=== PATIENT | male | born 1985 | race Caucasian/White ===

== ENCOUNTER 2020-07-25 22:49 | Emergency (ER) | payer MEDICAID ==
[~2020-07-25] VITALS: Ht 172.7 cm; Wt 79.5 kg
[~2020-07-25 22:49] MED LIST: CLIN-97 PO; DICL100T85; FAMO40TA73 PO; LISI10TA4; PROP10TA10
[2020-07-25 22:51] VITALS: BP 148/116
== END 2020-07-26 00:43 | disposition left against medical advice (07) ==
LOC: ER 22:49
DX: R07.9 Chest pain, unspecified (principal); Z53.21 Procedure and treatment not carried out due to patient leaving prior to being seen by health care provider
CPT/HCPCS: 93005

== ENCOUNTER 2021-09-06 19:30 | Emergency (ER) | payer MEDICAID ==
[~2021-09-06] VITALS: Ht 175.3 cm; Wt 81.8 kg
[~2021-09-06 19:30] MED LIST changes: +LISI10TA27; -LISI10TA4
[2021-09-06 19:37] VITALS: BP 137/100
[2021-09-06] MEDS ORDERED: neomy sulf/bacitrac zn/polymixin b oint 14.2 gm tube TP ONE (20:25)
[2021-09-06] MEDS ORDERED: cephalexin 500mg capsule PO ONE (20:25)
[2021-09-06] MEDS ORDERED: CEPH250T PO (20:30)
== END 2021-09-06 20:54 | disposition home or self-care (01) ==
LOC: ER 19:31
DX: T23.001A Burn of unspecified degree of right hand, unspecified site, initial encounter (principal); I10 Essential (primary) hypertension; F41.9 Anxiety disorder, unspecified; F32.9 Major depressive disorder, single episode, unspecified; F17.200 Nicotine dependence, unspecified, uncomplicated; Z98.890 Other specified postprocedural states; Z56.0 Unemployment, unspecified; Z88.6 Allergy status to analgesic agent; Z79.2 Long term (current) use of antibiotics; Z79.899 Other long term (current) drug therapy; X08.8XXA Exposure to other specified smoke, fire and flames, initial encounter; Y93.89 Activity, other specified; Y92.89 Other specified places as the place of occurrence of the external cause; Y99.8 Other external cause status
CPT/HCPCS: 99283

== ENCOUNTER 2021-10-01 23:36 | Inpatient (IN) | payer MEDICAID ==
[~2021-10-01] VITALS: Ht 175.3 cm; Wt 81.8 kg
[~2021-10-01 23:36] MED LIST changes: +CEPH250T PO
[2021-10-02] MEDS ORDERED: CefTRIAXone/D5W-Rocephin 1gm 50 ML IV STA (00:07)
[2021-10-02] MEDS ORDERED: VANCOmycin 1250MG/NS 250ml Bag 250 ML IV STA (00:08)
[2021-10-02] MEDS ORDERED: iohexol 300mg/ml 100ml inj. ONE (00:25)
[2021-10-02 01:12] LABS: BASOPHILS # (AUTO) 0.1 X10'3 (0-0.2); EOSINOPHILS # (AUTO) 0.2 X10'3 (0-0.9); EOSINOPHILS % (AUTO) 2.6 % (0-6); HEMATOCRIT 37.7 % (42.0-52.0); LYMPHOCYTES % (AUTO) 27.4 % (21-51); MEAN CORPUSCULAR HEMOGLOBIN 29.8 PG (27.0-31.0); MEAN CORPUSCULAR HGB CONC 34.4 g/dL (33.0-36.5); MEAN CORPUSCULAR VOLUME 86.7 FL (78-98); MEAN PLATELET VOLUME 7.3 FL (7.4-10.4); MONOCYTES # (AUTO) 0.4 X10'3 (0-0.9); MONOCYTES % (AUTO) 5.3 % (2-12); NEUTROPHILS # (AUTO) 4.6 X10'3 (1.8-7.7); NEUTROPHILS % (AUTO) 63.7 % (42-75); PLATELET COUNT 315 X10'3 (140-440); RED BLOOD COUNT 4.35 X10'6 (4.70-6.10); WHITE BLOOD COUNT 7.3 X10'3 (4.5-11.0)
[2021-10-02 01:17] LABS: APTT 28 SECONDS (22-32)
[2021-10-02 01:19] LABS: ALANINE AMINOTRANSFERASE 22 U/L (12-78); ALBUMIN 3.6 G/DL (3.4-5.0); ALBUMIN/GLOBULIN RATIO 0.8 (1.1-1.5); ALKALINE PHOSPHATASE 91 IU/L (46-116); ANION GAP 2 (8-16); ASPARTATE AMINO TRANSFERASE 24 U/L (10-37); BILIRUBIN,TOTAL 0.2 MG/DL (0.1-1.0); BLOOD UREA NITROGEN 18 MG/DL (7-18); BUN/CREATININE RATIO 23.4 (5.4-32.0); CALCIUM 9.3 MG/DL (8.5-10.1); CHLORIDE 99 MMOL/L (99-107); CREATININE 0.77 MG/DL (0.60-1.10); GLUCOSE 99 MG/DL (70-104); SODIUM 131 MMOL/L (135-145); TOTAL CARBON DIOXIDE 30.2 MMOL/L (24-32); TOTAL PROTEIN 7.9 G/DL (6.4-8.2); eGFR > 90 ML/MIN
[2021-10-02] MEDS ORDERED: mag hydrox/Alum hydrox/simeth 30ml oral suspension PO PRN (02:50)
[2021-10-02] MEDS ORDERED: magnesium 4gm in 100ml NS 100 ML IV PRN (02:50)
[2021-10-02] MEDS ORDERED: morphine 2 MG/ML inj. syringe IV PRN ×2 (02:50)
[2021-10-02] MEDS ORDERED: magnesium hydroxide 30ml (MOM) UD suspension PO PRN (02:50)
[2021-10-02] MEDS ORDERED: potassium Cl 20 mEq SR tablet PO PRN ×2 (02:50)
[2021-10-02] MEDS ORDERED: acetaminophen 325mg tablet PO PRN (02:50)
[2021-10-02] MEDS ORDERED: magnesium 2GM in 50ml NS 50 ML IV PRN (02:50)
[2021-10-02] MEDS ORDERED: magnesium Cl slow-release 64mg tablet PO PRN (02:50)
[2021-10-02] MEDS ORDERED: potassium CL 10mEq/100ml bag 100 ML IV PRN (02:50)
[2021-10-02] MEDS ORDERED: ondansetron/PF 4mg/2ml inj IV PRN (02:50)
[2021-10-02] MEDS ORDERED: HYDROcodone/acetaminophen 5mg/325mg tablet PO PRN (02:50)
[2021-10-02 03:00] VITALS: BP 122/71
[2021-10-02] MEDS: HYDROcodone/acetaminophen 10/325mg tab PO PRN ×3 (03:36→13:34)
--- NOTE | 2021-10-02 06:30 | NUR ---
Patient in room [facility]. I have received report from Seth BAPTISTE and had the opportunity to ask questions and assume patient care.
[2021-10-02 06:31] LABS: MAGNESIUM 2.2 MG/DL (1.5-2.4)
[2021-10-02] MEDS ORDERED: K and/or MAG REPLACEMENT MC SCH (08:00)
[2021-10-02] MEDS ORDERED: famotidine 20mg tablet PO SCH (08:00)
[2021-10-02] MEDS ORDERED: propranolol 10mg tablet PO SCH (08:00)
[2021-10-02] MEDS ORDERED: enoxaparin 30mg/0.3ml syringe SUBCUT SCH (08:00)
[2021-10-02] MEDS ORDERED: docusate sod 100mg capsule PO SCH (08:00)
[2021-10-02] MEDS ORDERED: lisinopril 10 MG tablet PO SCH (08:00)
[2021-10-02] MEDS ORDERED: enoxaparin 40mg/0.4ml syringe SUBCUT SCH (08:57)
[2021-10-02] MEDS ORDERED: VANCOMYCIN 1GM/200ML IVPB 200 ML IV SCH (09:00)
[2021-10-02 11:00] VITALS: BP 101/53
[2021-10-02] MEDS ORDERED: NO HOME MEDS (11:36)
[2021-10-02 14:34] VITALS: BP 105/55
--- NOTE | 2021-10-02 16:27 | NUR ---
Patient left AMA
[2021-10-03] MEDS ORDERED: CefTRIAXone/D5W-Rocephin 1gm 50 ML IV SCH
[2021-10-03] MEDS ORDERED: VANCOMYCIN LEVEL IV ONE (00:30)
== END 2021-10-02 15:52 | disposition left against medical advice (07) | DRG 115 ==
LOC: ER 23:36 → ED HOLD 10-02 02:57 → SUR 3N 10-02 03:22
PROVIDERS: ADMIT Internal Medicine; ATTEND Family Medicine
PROC: BN251ZZ Computerized Tomography (CT Scan) of Facial Bones using Low Osmolar Contrast (ICD-10-PCS; principal; 2021-10-02)
DX: H60.13 Cellulitis of external ear, bilateral (principal); F17.210 Nicotine dependence, cigarettes, uncomplicated; F19.10 Other psychoactive substance abuse, uncomplicated; I10 Essential (primary) hypertension; Z53.29 Procedure and treatment not carried out because of patient's decision for other reasons; H61.002 Unspecified perichondritis of left external ear; F32.A Depression, unspecified; F41.9 Anxiety disorder, unspecified; Z56.0 Unemployment, unspecified; Z88.8 Allergy status to other drugs, medicaments and biological substances; Z79.899 Other long term (current) drug therapy
CPT/HCPCS: 36415; 70487; 80053; 83605; 83735; 85025; 85610; 85730; 87040; 87081; 99285; G0378; J0696; J1650; J3370; Q9967

== ENCOUNTER 2023-10-24 16:25 | Emergency (ER) | payer MEDICAID ==
[~2023-10-24] VITALS: Ht 172.7 cm; Wt 81.8 kg
[~2023-10-24 16:25] MED LIST changes: -CEPH250T PO; -CLIN-97 PO; -DICL100T85; -FAMO40TA73 PO; -LISI10TA27; +NO HOME MEDS; -PROP10TA10
[2023-10-24 16:56] VITALS: BP 137/79; PULSE 106; TEMP 97.8; O2SAT 98
[2023-10-24] MEDS ORDERED: IBUP-1984 PO (17:48)
[2023-10-24 18:08] VITALS: RESP 16
[2023-10-24] MEDS: ketorolac tromethamine 15mg/ml inj. IM ONE (18:08)
== END 2023-10-24 18:26 | disposition home or self-care (01) ==
LOC: ER 16:26
DX: M25.561 Pain in right knee (principal); I10 Essential (primary) hypertension
CPT/HCPCS: 29505; 73564; 96372; 99283; J1885

== ENCOUNTER 2023-10-26 20:31 | Emergency (ER) | payer MEDICAID ==
[~2023-10-26] VITALS: Ht 175.3 cm; Wt 81.8 kg
[~2023-10-26 20:31] MED LIST changes: +IBUP-1984 PO
[2023-10-26 20:36] VITALS: BP 137/88; PULSE 98; RESP 17; TEMP 97.5; O2SAT 99
[2023-10-26] MEDS: ibuprofen 200mg tablet PO ONE (20:45)
== END 2023-10-26 20:56 | disposition home or self-care (01) ==
LOC: ER 20:31
DX: M25.561 Pain in right knee (principal); I10 Essential (primary) hypertension; Z79.1 Long term (current) use of non-steroidal anti-inflammatories (NSAID)
CPT/HCPCS: 99283

== ENCOUNTER 2025-02-03 10:30 | Emergency (ER) | payer MEDICAID ==
[~2025-02-03] VITALS: Ht 172.7 cm; Wt 72.7 kg
[~2025-02-03 10:30] MED LIST changes: -iohexol 300mg/ml 100ml inj. ONE
[2025-02-03 10:31] VITALS: BP 129/77; PULSE 94; RESP 16; TEMP 97.9; O2SAT 95
[2025-02-03] MEDS ORDERED: TETanus/Pertussis (Acell)/Diphther VAC/PF (Tdap-Adult) 0.5ml syringe IMVAC ONE (10:45)
--- NOTE | 2025-02-03 13:18 | Physician Documentation ---
History of Present Illness ~ Chief Complaint: Neck pain Stated Complaint: SWOLLEN GLANDS [facility] H[facility] Presents with a multitude of complaints, including neck pain and several sores with left neck swelling. Denies chills or fever. Ordered labs, tetanus and will further assess once patient in room. RME completed at this time. Medication Reconciliation Allergies: Coded Allergies: No Known Allergies (Unverified , 02/03/25) Miscellaneous Medications Home Med List (No Home Medications), (Reported) Past Medical History Past Medical History: Hypertension, Anxiety, Depression Past Surgical History: orthopedic surgeries Other Past Surgical History: L5-S1 fusion right thumb surgery and right hand surgery Alcohol Use: None Drug Use: other Lives with: S/O Lives In: Home Occupation: unemployed Physical Exam Vital Signs: Temperature: 97.9, Source: Oral, Heart Rate: 94, Respiratory Rate: 16, BP: 129/77, Pulse Oximetry: 95, Weight: 72.700 Oxygen Flow Rate: 0 Progress Results/Orders Results/Orders Orders - LILIAM SANCHEZ NP CMP (02/03/25 10:44) Cbc/Diff (02/03/25 10:44) Completed Orders - LILIAM SANCHEZ NP Tetanus/Pertuss/Diph Acell/Pf (Boostrix (02/03/25 10:45) Vital Signs 02/03/25 10:31 Temp 97.9 Pulse 94 Resp 16 B/P (MAP) 129/77 Pulse Ox 95 O2 Flow Rate 0 Departure Impression: Primary Impression: Eloped from emergency department Referrals: NO PRIMARY CARE PROVIDER (PCP) Signature Scribe Signature: x Attestation: The note accurately reflects work and decisions made by me.Liliam Martin NP 02/03/25 13:19 LILIAM SANCHEZ NP Feb 03, 2025 13:18
== END 2025-02-03 14:50 | disposition left against medical advice (07) ==
LOC: ER 10:31
DX: M54.2 Cervicalgia (principal); R22.1 Localized swelling, mass and lump, neck; I10 Essential (primary) hypertension; F41.9 Anxiety disorder, unspecified; F32.A Depression, unspecified; Z98.890 Other specified postprocedural states; Z56.0 Unemployment, unspecified; Z53.21 Procedure and treatment not carried out due to patient leaving prior to being seen by health care provider

== ENCOUNTER → 2025-02-03 | Emergency (ER) | payer MEDICAID ==
[~2025-02-03] VITALS: Ht 172.7 cm; Wt 74.0 kg
[~2025-02-03] MED LIST changes: -IBUP-1984 PO; +iohexol 300mg/ml 100ml inj. ONE
[2025-02-03 21:37] VITALS: BP 136/89; PULSE 92; TEMP 98.5; O2SAT 97
[2025-02-03 22:20] VITALS: RESP 16
[2025-02-03 22:32] LABS: MEAN PLATELET VOLUME 6.5 FL (7.4-10.4); RED CELL DISTRIBUTION WIDTH 14.5 % (11.5-14.5)
[2025-02-03 22:43] LABS: CREATININE 0.81 MG/DL (0.60-1.10); TOTAL CARBON DIOXIDE 32.6 MMOL/L (24-32); eCRCL 116 ML/MIN; eGFR > 90 ML/MIN
--- NOTE | 2025-02-03 23:25 | Physician Documentation ---
History of Present Illness ~ Chief Complaint: Abscess Stated Complaint: SWOLLEN NECK Time Seen by MD: 23:23 Primary Medical Doctor: MIKE Tetanus Within 5 Years: No Medication Reconciliation Allergies: Coded Allergies: No Known Allergies (Unverified , 02/03/25) Miscellaneous Medications Home Med List (No Home Medications), (Reported) Past Medical History Past Medical History: Hypertension, Anxiety, Depression Past Surgical History: orthopedic surgeries Other Past Surgical History: L5-S1 fusion right thumb surgery and right hand surgery Alcohol Use: None Drug Use: other Lives with: S/O Lives In: Home Occupation: unemployed Physical Exam Vital Signs: Temperature: 98.5, Heart Rate: 92, Respiratory Rate: 16, BP: 136/89, Pulse Oximetry: 97, Weight: 74.000 Oxygen Flow Rate: 0 Progress Results/Orders Results/Orders Orders - LUNA JAMESON MD Culture Blood (02/03/25 22:07) Completed Orders - LUNA JAMESON MD Cbc/Diff (02/03/25 22:07) Procalcitonin (02/03/25 22:07) BMP (02/03/25 22:07) Lacticsepsis (02/03/25 22:07) Iohexol 300mg/Ml 100ml Inj. (Omnipaque-3 (02/03/25 23:29) Vital Signs 02/03/25 02/03/25 21:37 22:20 Temp 98.5 Pulse 92 Resp 16 16 B/P (MAP) 136/89 Pulse Ox 97 O2 Flow Rate 0 Laboratory Tests Test 02/03/25 22:22 White Blood Count 10.2 Red Blood Count 3.64 L Hemoglobin 10.9 L Hematocrit 31.5 L Mean Corpuscular Volume 86.6 Mean Corpuscular Hemoglobin 30.0 Mean Corpuscular Hemoglobin Concent 34.7 Red Cell Distribution Width 14.5 Platelet Count 528 H Mean Platelet Volume 6.5 L Neutrophils (%) (Auto) 72.9 Lymphocytes (%) (Auto) 17.4 L Monocytes (%) (Auto) 5.3 Eosinophils (%) (Auto) 3.7 Basophils (%) (Auto) 0.7 Neutrophils # (Auto) 7.5 Lymphocytes # (Auto) 1.8 Monocytes # (Auto) 0.5 Eosinophils # (Auto) 0.4 Basophils # (Auto) 0.1 CBC Comment Sodium Level 137 Potassium Level 3.8 Chloride Level 100 Carbon Dioxide Level 32.6 H Anion Gap 4 L Blood Urea Nitrogen 10 Creatinine 0.81 Estimated GFR/1.73 m2 > 90 BUN/Creatinine Ratio 12.3 Glucose Level 104 Lactic Acid Level 1.5 Calcium Level 8.9 Albumin 2.8 L Procalcitonin < 0.05 Chemistry Comments Departure Referrals: NO PRIMARY CARE PROVIDER (PCP) LUNA JAMESON MD Feb 03, 2025 23:25
== END | disposition left against medical advice (07) ==
LOC: ER 21:34
DX: R22.1 Localized swelling, mass and lump, neck (principal); Z53.21 Procedure and treatment not carried out due to patient leaving prior to being seen by health care provider
CPT/HCPCS: 36415; 80048; 83605; 84145; 85025; 87040; Q9967